=== PATIENT | male | born 1940 | race Caucasian/White ===

== ENCOUNTER 2019-06-06 11:10 | Outpatient (CLI) | payer MEDICARE, OTHER, SELFPAY | END 2019-06-06 11:11 | disposition home or self-care (01) | PROVIDERS: PCP Family Medicine; Visit Provider Specialist | DX: L57.0 Actinic keratosis (principal) | CPT/HCPCS: 88305 ==

== ENCOUNTER 2022-06-09 08:53 | Outpatient (CLI) | payer MEDICARE, OTHER, SELFPAY | END 2022-06-09 08:54 | disposition home or self-care (01) | LOC: CHSLAB 08:57 | PROVIDERS: PCP Family Medicine; Visit Provider Specialist | DX: C44.619 Basal cell carcinoma of skin of left upper limb, including shoulder (principal); L57.0 Actinic keratosis | CPT/HCPCS: 88305; 88342 ==